=== PATIENT | female | born 1960 | race Caucasian/White ===

== ENCOUNTER → 2017-05-13 21:50 | Outpatient (CLI) | payer SELFPAY | PROVIDERS: Visit Provider Otolaryngology | DX: H92.12 Otorrhea, left ear (principal) | CPT/HCPCS: 87070; 87075; 87077; 87186; 87205 ==

== ENCOUNTER → 2021-03-01 08:01 | Outpatient (CLI) | payer MEDICAID, SELFPAY ==
--- NOTE | 2021-03-01 09:42 | NEURO ---
NCS and/or EMG Patient Report Ordering Doctor: Yany Mckeon NP DATE OF SERVICE: 03/01/21 СЕРГЕЙ Schaffer presents for electrodiagnostic testing of the upper limbs. She reports numbness and tingling in both hands, worse on the left side. Symptoms are worse at night. Electrodiagnostic findings: Median motor nerve demonstrates prolonged distal latency bilaterally with normal amplitude and reduced conduction velocity. Normal ulnar motor response bilaterally. Absent left median sensory latency at the wrist. Prolonged right median sensory latency at the wrist. Prolonged median palmar response bilaterally. Normal ulnar and radial sensory responses. On needle EMG, all muscles tested showed no evidence of denervation with normal motor unit action potentials. Electrodiagnostic impression: This is an abnormal study in the upper limbs. 1. Electrodiagnostic findings demonstrate bilateral median mononeuropathy. This is consistent with a moderate to advanced bilateral carpal tunnel syndrome 2. No electrodiagnostic evidence is noted for cervical radiculopathy.
== END ==
PROVIDERS: Referring Provider Nurse Practitioner Adult Health; Visit Provider Nurse Practitioner Adult Health
DX: M79.601 Pain in right arm (principal); M79.602 Pain in left arm; R20.2 Paresthesia of skin
CPT/HCPCS: 95886; 95913

== ENCOUNTER 2022-02-06 16:14 | Emergency (ER) | payer MEDICAID, SELFPAY ==
[2022-02-06 16:16] VITALS: BP 154/104; PULSE 75; RESP 18; TEMP 36.2; O2SAT 100; BMI 22.1
--- NOTE | 2022-02-06 16:43 | EDS_ITS ---
HPI HPI - GI History of Present Illness Chief Complaint: Other, Pain/Inj Informant: patient Abdominal Pain/Flank Pain Onset: Days (3) Context: Gradual Onset Timing: Intermittent Quality: - (Pressure) Location: Diffuse Worsened by: Nothing Relieved by: Nothing Nausea/Vomiting/Emesis GI Symptom: Negative for Nausea or Vomiting Diarrhea/Melena/Hematochezia GI Symptom: Positive for Hematochezia; Negative for Diarrhea or Melena Associated Symptoms Associated Symptoms: Negative for Dysuria, Frequency or Hematuria Narrative Narrative: Patient presents with abdominal pain and buttock pain that has been getting worse over the past 3 days. Patient states it is intermittent. Patient states that it is diffuse across her abdomen and into her buttocks. Patient describes it as a pressure and sharp at times. Patient states nothing makes it worse. Patient states he gets better after a few minutes. Patient states she did have some bloody mucus with a bowel movement today. Patient denies any diarrhea. Patient denies any nausea or vomiting. Patient denies any urinary complaints. PFSH PFSH Medical History no medical history no medical history Home Medications omeprazole 20 mg capsule,delayed release 20 mg PO DAILY #30 CAPSULES 02/06/22 [Rx Last Taken Unknown] Allergy/AdvReac Type Severity Reaction Status Date / Time No Known Allergies Allergy Verified 02/06/22 16:16 Surgical History History of tonsillectomy Social History Smoking Status: Current every day smoker tobacco type: cigarettes ROS ROS ED Constitutional Constitutional ED: Denies chills or fever(s) Eyes Eyes: Denies blurry vision or change in vision ENT ENT ED: Denies rhinorrhea or sore throat Cardiovascular Cardiovascular: Denies chest pain or palpitations Respiratory/Chest Respiratory/Chest: Denies cough or dyspnea Gastrointestinal Gastrointestinal: Reports abdominal pain; Denies nausea or vomiting Genitourinary Genitourinary ED: Denies dysuria or hematuria Musculoskeletal Musculoskeletal: Denies back pain or neck pain Integumentary Denies abscess or rash Neurologic Neurologic: Denies headache(s) or weakness Allergic/Immunologic Allergic/Immunologic ED: Denies mouth swelling or urticaria EXAM Physical Exam Const Vital Signs: 02/06/22 16:16 02/06/22 18:15 Temperature 97.2 F L Temperature Source Temporal Pulse Rate 75 79 Respiratory Rate 18 15 Blood Pressure 154/104 H 133/89 H Blood Pressure Mean 120 103 Pulse Ox 100 99 Oxygen Delivery Method Room Air Room Air Positive well nourished and well developed General Appearance ED: well developed and NAD HEENT Reports moist mucous membranes Neck supple and no JVD Resp normal respiratory effort and clear to auscultation bilaterally Cardio regular rate, regular rhythm and no murmurs GI normal to inspection, nondistended, normoactive bowel sounds and non-tender Palpation: soft Extremity normal to inspection General Extremety ED: Negative for edema or tenderness General Extremity: Negative for edema Neuro oriented x3, CN's II-XII intact bilaterally and no sensory deficits noted Sensorium / Orientation: alert Motor Exam: strength 5/5 throughout Psych mental status grossly normal Skin no rashes or lesions noted MDM MDM MDM Narrative Medical decision making narrative: Patient was given IV fluids. CBC was within normal limits. Comprehensive metabolic profile was essentially within normal limits. Urinalysis does not show any evidence of urinary tract infection or hematuria. CT scan of the abdomen and pelvis was obtained. There is evidence of gastritis. There is a solitary gallstone but no evidence of cholecystitis. Lactate was normal. Patient is feeling better on reevaluation. Patient was advised of her findings. Patient was given a prescription for Prilosec. Patient was instructed to start with a bland diet and advance as tolerated. Patient was instructed to follow-up with her primary care physician in 5 to 7 days. Patient understood and was agreeable with the plan. All questions were answered. Lab Data Attestation: I reviewed the patient's lab results. Labs: Laboratory Results - last 24 hr 02/06/22 02/06/22 02/06/22 16:57 16:58 16:58 WBC 7.5 RBC 4.09 L Hgb 12.1 Hct 37.5 MCV 91.7 MCH 29.6 MCHC 32.3 RDW Std Deviation 49.5 H RDW Coeff of Santiago 14.7 H Plt Count 211 MPV 11.1 Immature Gran % (Auto) 0.300 Neut % (Auto) 53.3 Lymph % (Auto) 35.5 [place] % (Auto) 8.9 Eos % (Auto) 1.5 Baso % (Auto) 0.5 Absolute Neuts (auto) 4.0 Absolute Lymphs (auto) 2.68 Nucleated RBC % 0 Sodium 138 Potassium 4.0 Chloride 108 H Carbon Dioxide 26.0 Anion Gap 4 L BUN 13 Creatinine 0.63 Estim Creat Clear Calc 71.66 Est GFR (MDRD) Af Amer 124 Est GFR (MDRD) Non-Af 102 BUN/Creatinine Ratio 20.6 H Glucose 104 Lactic Acid Calcium 9.5 Total Bilirubin 0.40 AST 15 ALT 21 Alkaline Phosphatase 103 Total Protein 7.3 Albumin 3.9 Globulin 3.4 Albumin/Globulin Ratio 1.1 Lipase 137 Urine Color Yellow Urine Clarity Clear Urine pH 6.0 Ur Specific [place] 1.015 Urine Protein Negative Urine Glucose (UA) Normal Urine Ketones Negative Urine Occult Blood Negative Urine Nitrite Negative Urine Bilirubin Negative Urine Urobilinogen Normal Ur Leukocyte Esterase 25 H Urine RBC 0 SEEN Urine WBC 0-5 SEEN Ur Squamous Epith Cells 0-5 SEEN Urine Bacteria 1+ Urine Mucus 0 SEEN 02/06/22 16:58 WBC RBC Hgb Hct MCV MCH MCHC RDW Std Deviation RDW Coeff of [place] Plt Count MPV Immature Gran % (Auto) Neut % (Auto) Lymph % (Auto) [place] % (Auto) Eos % (Auto) Baso % (Auto) Absolute Neuts (auto) Absolute Lymphs (auto) Nucleated RBC % Sodium Potassium Chloride Carbon Dioxide Anion Gap BUN Creatinine Estim Creat Clear Calc Est GFR (MDRD) Af Amer Est GFR (MDRD) Non-Af BUN/Creatinine Ratio Glucose Lactic Acid 0.7 Calcium Total Bilirubin AST ALT Alkaline Phosphatase Total Protein Albumin Globulin Albumin/Globulin Ratio Lipase Urine Color Urine Clarity Urine pH Ur Specific [place] Urine Protein Urine Glucose (UA) Urine Ketones Urine Occult Blood Urine Nitrite Urine Bilirubin Urine Urobilinogen Ur Leukocyte Esterase Urine RBC Urine WBC Ur Squamous Epith Cells Urine Bacteria Urine Mucus Radiography Diagnostic Testing: Clinical Impression(s) from Imaging Studies Abdomen/Pelvis CT 02/06/22 16:46 IMPRESSION: (NOT LISTED IN ORDER OF SIGNIFICANCE) Gastritis. There is a solitary gallstone. Other findings as above. Electronically Signed: Lev Millan MD at 19:47 EST Reading Location ID and State: [facility] / [place] , Service support , Discharge Plan Triage Chief Complaint: Other, Pain/Inj Other Complaint: GI Bleed ED Provider: Perry Rojas Dx/Rx/DC Orders Clinical Impression: Gastritis, Abdominal pain Instructions: ED Gastritis (Adult) Prescriptions: New omeprazole [omeprazole] 20 MG capsule 20 mg PO DAILY Qty: 30 0RF [facility] Referrals: Care Physician,No Primary [Non-Staff] - Disposition Disposition: Home, Self Care
--- NOTE | 2022-02-06 16:46 | CT_ITS ---
STUDY: CT Abdomen And Pelvis W/ Contrast Injection 02/06/2022 7:45 PM REASON FOR EXAM: Female, 61 years old. ABDOMINAL PAIN Technologist Notes rectal pain and noticed blood and mucus, constipation TECHNIQUE: Transaxial images were obtained with oral contrast, and with Oral and amp; IV Gastrografin and amp; 100mL Isovue-300 intravenous contrast. Individualized dose optimization techniques were used for this CT. COMPARISON: None. FINDINGS: The visualized lung bases are unremarkable. The visualized portions of the heart are within normal limits. Unremarkable liver. There is a solitary gallstone. Unremarkable spleen. Unremarkable pancreas. Unremarkable bilateral adrenal glands. There are hypodensities in the right kidney. These are consistent for cysts. No follow up required. No acute findings of the left kidney. Focal wall thickening of the antrum of stomach. This can suggest a gastritis. Unremarkable small intestine. Unremarkable colon. There is non-visualization of the appendix. There are calcifications of the abdominal aorta. This is consistent for atherosclerotic disease. There is no abdominal aortic aneurysm. Unremarkable inferior vena cava. Subcentimeter mesenteric lymph nodes. Unremarkable urinary bladder. Unremarkable abdominal wall. Unremarkable osseous structures. CT/Abdomen/Pelvis WITH Contrast IMPRESSION: (NOT LISTED IN ORDER OF SIGNIFICANCE) Gastritis. There is a solitary gallstone. Other findings as above. Electronically Signed: Lev Millan MD at 19:47 EST ,
[2022-02-06] MEDS: 0.9% Normal Saline 1,000 ML 1000 ML IV (16:57)
[2022-02-06 17:02] LABS: Mucous, Urine 0 SEEN /hpf (<or=2+); Red Blood Cells-Urine 0 SEEN /hpf (0-5)
[2022-02-06 17:07] LABS: Absolute Lymphocyte Count 2.68 X10^3/uL (0.83-4.51); Basophil# 0.04 X10^3/uL; Basophil% 0.5 % (0-1); Eosinophil# 0.11 X10^3/uL; Eosinophils% 1.5 % (0-5); Hematocrit 37.5 % (37-47); Hemoglobin 12.1 g/dL (12.0-15.0); Lymphocyte # 2.68 X10^3/ul (0.83-4.51); Lymphocyte % 35.5 % (19-41); Mean Corp Hgb Conc 32.3 g/dL (32-36); Mean Corpuscular Hgb 29.6 pg (27.0-32.0); Mean Corpuscular Volume 91.7 fL (81-99); Mean Platelet Vol. 11.1 fl (6.2-12.0); Monocyte# 0.67 X10^3/uL; Monocyte% 8.9 % (0-10); NRBC Flagged by Analyzer 0 % (0-5); Neutrophil # 4.02 X10^3/uL (2.7-7.7); Neutrophil % 53.3 % (47-70); Platelet Count 211 K/mm3 (150-450); RBC Distribution Width CV 14.7 % (11.6-14.6); RBC Distribution Width SD 49.5 fl (35.1-43.9); Red Blood Count 4.09 M/mm3 (4.2-5.4); White Blood Count 7.5 K/mm3 (4.4-11.0)
[2022-02-06 17:16] LABS: Color, Urine Yellow (Yellow); Glucose, Dipstick Normal (Normal); Ketone-Dipstick Negative (Negative); Leukocyte Esterase-Dipstick 25 /ul (Negative); Nitrite-Dipstick Negative (Negative); Occult Blood-Urine Negative /ul (Negative); Protein-Dipstick Negative (Negative); Specific Gravity, Urine 1.015 (1.002-1.030); Urine Bilirubin Dipstick Negative (Negative); Urine Clarity Clear (Clear); Urine Urobilinogen Normal (Normal)
[2022-02-06 17:26] LABS: ALB/GLOB Ratio 1.1 RATIO (0.9-2.4); AST(SGOT) 15 U/L (15-37); Alanine Aminotransfer ALT/SGPT 21 U/L (13-56); Albumin, Serum 3.9 g/dL (3.2-5.0); Alkaline Phosphatase 103 U/L (45-117); Anion Gap 4 (5-15); BUN 13 mg/dL (7-18); BUN/Creat Ratio 20.6 RATIO (10-20); Calcium,Total 9.5 mg/dL (8.5-10.1); Chloride 108 mmol/L (98-107); Creatinine, Serum 0.63 mg/dL (0.55-1.02); EST Glomerular Filtration Rate 102 mL/min (>60); Est Glom Filt Rate - Afr Amer 124 mL/min (>60); Estimated Creatinine Clearance 71.66 ml/min; Globulin 3.4 g/dL (2.2-4.2); Glucose 104 mg/dL (74-106); Lipase 137 U/L (73-393); Protein, Total 7.3 g/dL (6.4-8.2); Sodium Level 138 mmol/L (136-145)
[2022-02-06 17:29] LABS: Bacteria 1+ /hpf (None Seen); Squamous Epithelial Cells - UA 0-5 SEEN /hpf (5-10); White Blood Cells 0-5 SEEN /hpf (0-5)
[2022-02-06 17:32] LABS: Lactic Acid 0.7 mmol/L (0.4-1.9)
[2022-02-06 18:15] VITALS: BP 133/89; PULSE 79; RESP 15; O2SAT 99
== END 2022-02-06 20:46 | disposition home or self-care (01) ==
PROVIDERS: Emergency Provider Emergency Medicine; Visit Provider Emergency Medicine
DX: K29.70 Gastritis, unspecified, without bleeding (principal); K92.2 Gastrointestinal hemorrhage, unspecified; F17.210 Nicotine dependence, cigarettes, uncomplicated; K80.20 Calculus of gallbladder without cholecystitis without obstruction
CPT/HCPCS: 74177; 80053; 81001; 83605; 83690; 85025; 96360; 99283; J7030; Q9967; A4216

== ENCOUNTER 2022-03-19 07:33 | Day surgery (SDC) | payer MEDICAID, SELFPAY ==
[2022-03-19] VITALS (9 sets, daily range): BP systolic 108–164; BP diastolic 81–103; PULSE 68–82; RESP 16; TEMP 36.3–37.1; O2SAT 96–98; BMI 21.2
--- NOTE | 2022-03-19 | MASS_PTH ---
PATIENT: Fredrick HAYWARD LOC: EN U#:[id number] AGE/SX: 61/F ROOM: RE03/19/[address]: Dr. Ama Reeves MD : 1960 BED: DIS: 03/19/2022 SPEC #: [id number] RECD: 03/19/22 09:32 STATUS: ANTHONY LASHON #: [id number] NORMA: 03/19/22 00:[address]: Ama Reeves DEPT: SURGICAL PATHOLOGY RECD BY: Leticia Ibarra ENTERED: 03/19/22 10:34 SP TYPE: Mass OTHR DR: Miesha [facility] Tissues: A - Rectum, NOS B - Rectum, NOS Procedures: Frozen Section (charge) Surgery Specimen Level IV HEADER OPERATION: Colonoscopy [place] biopsy PRE-OP DIAGNOSIS: Blood in stool, constipation, abdominal pain TISSUE SUBMITTED: A ? Rectal mass biopsy at 10 cm, FS, B ? Rectal mass FROZEN SECTION DIAGNOSIS A. Rectal mass at 10 cm, biopsy: Fragments of colonic mucosa, negative for carcinoma. SJ:rg 03/19/2022 MICROSCOPIC DIAGNOSIS A. Rectal mass at 10 cm, biopsy: Fragments of tubular adenoma. See comment. B. 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 SJ:bev 03/20/2022 COMMENT A. Definite invasive carcinoma is not seen. This case is discussed with Dr. Reeves on 03/20/22 Case has been reviewed in consultation with Dr. Sanchez who concurs with the above diagnosis. IDC:AM MICROSCOPIC DESCRIPTION Slides are reviewed. GROSS DESCRIPTION A - Received fresh for frozen section diagnosis labeled with the patient's name is a specimen designated rectal mass biopsy at 10 cm. The specimen consists of two irregular fragments of bergman soft tissue that in aggregate measure 0.5 x 0.3 x 0.1 cm. The entire specimen is submitted for frozen section diagnosis in one cassette. / SJ: 03/19/2022 B - Received in fixative is one container labeled with the patient's name and designated rectal mass biopsy. The specimen consists of multiple irregular fragments of light bergman soft tissue that in aggregate measure 1 x 0.4 x 0.1 cm. The specimen is totally submitted in one cassette. / : 03/19/2022 TC:0 [facility]:[id number] x2, [id number] ADDENDUM ADDENDUM ADDENDUM ADDENDUM ADDENDUM ADDENDUM ADDENDUM ADDENDUM ADDENDUM ADDENDUM ADDENDUM ADDENDUM 05/08/2022 14:40 ADDENDUM 05/08/2022 14:40 ADDENDUM 05/08/2022 14:40 ADDENDUM 05/08/2022 14:40 ADDENDUM 05/08/2022 14:40 This addendum is added to incorporate an outside pathology consultation report. The case was examined at [facility] (#[id number]) and the following diagnosis was rendered. A. Rectal mass at 10 cm, biopsy: Tubular adenoma with high-grade dysplasia. B. Rectal mass, biopsy: Tubular adenoma with at least high-grade dysplasia. Please see complete above mentioned consultation report in EMR
--- NOTE | 2022-03-19 08:01 | PCM.HP.BLA ---
History and Physical Date of Admission: 03/19/22 Date of Service:? 03/01/22 MR#: [id number] Acct: [id number] Name:Fredrick SILVER Rep #: [id number] : 1960 ? ? Provider: Dr. Ama Reeves MD Age/Sex:? 61/F ? ? Location: [facility] Status: Signed Intake Vital Signs ? 02/07/2216:16 03/01/2209:14 Height 5 ft 1 in 5 ft 1 in Weight: 117 lb 120 lb 2 oz BMI 22.1 22.6 BP 154/104 H 136/90 H Blood Pressure Location ? Rt brachial Position ? Sitting Respiration 18 17 Pulse 75 74 Pulse Source ? Monitor Temp 97.2 F L 97.2 F L Temp Source Temporal Temporal Pulse Oximetry (%) 100 97 Oxygen Delivery Method ? room air Intake Visit Reasons:?ABDOMINAL PAIN/CONSTIPATION Chief Complaint: abdominal pain/constipation Is patient in pain?: Yes Allergies No Known Allergies Allergy (Verified 03/01/22 09:15) Medications omeprazole 20 mg capsule,delayed release 20 mg PO DAILY #30 CAPSULES 02/06/22 [Rx] amoxicillin 875 mg-potassium clavulanate 125 mg tablet 1 tab PO BID 03/01/22 [History Confirmed 03/01/22] PFSH Surgical History? History of tonsillectomy Social History?(Updated 03/01/22 @ 09:13 by Gladys Hernandez) Smoking Status:? Current every day smoker tobacco type: cigarettes alcohol intake:? current alcohol intake frequency: a few times a month substance use type:? does not use HPI HPI HPI: 61-year-old female presents due to bright blood per rectum.? Patient states she has had this ongoing for about the last 4 weeks.? Patient states that if she is constipated she will notice a little bit of bright red blood in the toilet.? Patient states she has had issues with constipation during this time and only has little bit of bowel movements daily and states it is painful but not pain at the rectum just painful in her abdomen when she is trying to go.? Patient does complain of some lower abdominal crampiness.? Patient states that she on Saturday she did take MiraLAX once daily for 3 days and does not really have any results with that.? Patient has not done any other laxatives.? Patient's never had a colonoscopy denies any family history of colon cancer.? Patient states he does have a good appetite and still eating well.? Patient states she drinks plenty of water, unsure how much fiber she gets in her diet. ROS General General: No weight change, appetite, fatigue, colon cancer, breast cancer or weakness HEENT HEENT: No difficulty swallowing, eye injury, eye surgery, swollen glands or hoarseness Endo Endocrine: No thyroid disease, diabetes mellitus, thyroid cancer, Hair loss, heat intolerance or cold intolerance Skin Skin: No rash or changing moles Breast Breast: No left breast lump, right breast lump, nipple discharge, breast pain, abnormal mammogram, abnormal US or breast enlargement Musc Musculoskeletal: Yes back problems and arthritis; No rheumatoid arthritis, gout or joint pain Cardio Cardiovascular: No murmur, pacemaker, heart disease, atrial fibrillation, high blood pressure, heart attack, heart stent, palpitations, shortness of breat with exertion or chest pain Psych Psychiatric: No depression, anxiety or hearing voices Resp Respiratory: No shortness of breath, No sleep apnea, No cough, No COPD, No asthma, No emphysema and No wheezing Gastro Gastrointestinal: Yes abdominal pain, No nausea or vomiting, No diarrhea, Yes constipation, Yes blood in stool, No acid reflux, Yes hemorrhoids, No ulcers, No gallbladder problem and No black,tarry stools Tee Hematologic: No blood thinners, No blood disorders, No bleeding, No anemia and No blood clots Neuro Neurologic: No system reviewed and no additional complaints, except as documented, No as per HPI, No abnormal gait, No abnormal hearing, No abnormal movements, No abnormal speech, No behavioral changes, No burning sensations, No confusion, No convulsions, No disequilibrium, No dizziness, No localized weakness, No frequent falls, No headache(s), No lack of coordination, No loss of vision, No memory loss, Yes numbness, No other visual disturbances, No radicular pain, No restless legs, No sensory deficit, No syncope, Yes tingling, No tremor(s), No weakness and No other Exam Const General: cooperative, healthy appearing and no acute distress [facility] Head: normal to inspection Resp Effort & Inspection: normal respiratory effort Cardio Rate: regular rate GI Inspection: distended (Slightly distended in right lower/mid abdomen) Palpation: soft, no guarding, no hernias and nontender Skin General: no rashes or lesions noted Neuro General: patient oriented x3 Extrem General: no clubbing, cyanosis or edema Psych Affect: normal affect Assessment and Plan Assessment and Plan (1) Blood in stool: ?Status:?Acute (2) Constipation: ?Status:?Acute (3) Abdominal pain: ?Status:?Acute Plan Discussed with patient that if she is not going very much every day and has not had what she would consider normal bowel movement and weeks at a recommend her first start with several suppositories to try to get going from below first.? And I would recommend her taking MiraLAX or Dulcolax after that to help clean everything out.? Discussed with patient that once she is going more would have her call the office back to schedule colonoscopy as I do not want to schedule as I am not sure what prep will work for her until she really gets started having bowel movements. I have discussed the above with the patient. I have offered the patient colonoscopy for evaluation. I have explained the risks/benefits of the procedure and described the procedure.? I have discussed the risks with the patient, including but not limited to:? infection, bleeding, perforation of the GI tract requiring emergency surgery, inability to complete the procedure, injury to any internal organs, complications of anesthesia, etc. - the patient understands and agrees to proceed. I have answered all the patient's questions to the patient's satisfaction and the patient has no further questions. The patient has been given instructions for the colon cleansing preparation.? 1 or 2 days of clears depending on how often patient is having bowel movements (and Dulcolax x 4 on the first day if 2-day prep), MiraLAX Dulcolax split prep. Ama Reeves M.D. Pager: [phone] [facility] [address] [place] [address], [address] [place] [address] Office: [phone] Coding Level of Care Code Off vis,new,level 3 Diagnoses Blood in stool? K92.1 Constipation? K59.00 Abdominal pain? R10.9 03/02/22 0905 <Electronically signed by Ama Reeves MD> Date Ama Reeves MD
[2022-03-19] MEDS: Lactated Ringers 1,000 ML 15 ML IV ×2 (08:36→10:38)
--- NOTE | 2022-03-19 09:38 | OP.COLON_ITS ---
Patient Name: Fredrick Schaffer Procedure Date: 03/19/2022 8:50 AM Date of : 1960 Age: 61 Procedure: Colonoscopy Indications: Rectal bleeding, Constipation Providers: Ama Reeves MD Referring MD: Miesha Valdes [facility] Medicines: Monitored Anesthesia Care Patient Profile: This is a 61 year old female. Last Colonoscopy: none. The patient's first colonoscopy is today. Complications: No immediate complications. Procedure: Pre-Anesthesia Assessment: - Prior to the procedure, a History and Physical was performed, and patient medications and allergies were reviewed. The patient's tolerance of previous anesthesia was also reviewed. The risks and benefits of the procedure and the sedation options and risks were discussed with the patient. All questions were answered, and informed consent was obtained. Prior Anticoagulants: The patient has taken no previous anticoagulant or antiplatelet agents. ASA Grade Assessment: Per anesthesia. After reviewing the risks and benefits, the patient was deemed in satisfactory condition to undergo the procedure. After I obtained informed consent, the scope was passed under direct vision. Throughout the procedure, the patient's blood pressure, pulse, and oxygen saturations were monitored continuously. The pediatric colonoscope was introduced through the anus and advanced to the cecum, identified by the appendiceal orifice, ileocecal valve and palpation. The colonoscopy was performed without difficulty. The patient tolerated the procedure well. The quality of the bowel preparation was good. Scope In: 8:56:51 AM Scope Withdrawal Time 0 hours 20 minutes 11 seconds Scope Out: 9:25:04 AM Total Procedure Duration Time 0 hours 28 minutes 13 seconds Findings: Hemorrhoids were found on perianal exam. Non-bleeding internal hemorrhoids were found. The hemorrhoids were Grade I (internal hemorrhoids that do not prolapse). A frond-like/villous non-obstructing mass was found in the rectum. The mass was partially circumferential (involving one-third of the lumen circumference). The mass measured three cm in length. No bleeding was present. Biopsies were taken with a cold forceps for histology. Area was tattooed with an injection of Leyla ink at lesion and just distal to mass. Mass at about 10-12cm from anus. The exam was otherwise without abnormality. Impression: - Hemorrhoids found on perianal exam. - Non-bleeding internal hemorrhoids. 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 Biopsied. Tattooed. - The examination was otherwise normal. Recommendation: - Discharge patient to home. - Resume previous diet. - Continue present medications. - Perform a CT scan (computed tomography) of chest with contrast, abdomen with contrast and pelvis with contrast today. - Check hemogram with white blood cell count and platelets, electrolyte panel and CEA today. - Refer to a colo-rectal surgeon at appointment to be scheduled. - Repeat colonoscopy is recommended. The colonoscopy date will be determined after pathology results from today's exam become available for review. Procedure Code(s): --- Professional --- 44784, Colonoscopy, flexible; with directed submucosal injection(s), any substance 74736, Colonoscopy, flexible; with biopsy, single or multiple Diagnosis Code(s): --- Professional --- K64.0, First degree hemorrhoids D49.0, Neoplasm of unspecified behavior of digestive system K62.5, Hemorrhage of anus and rectum K59.00, Constipation, unspecified CPT copyright 2017 [employer]. All rights reserved. The codes documented in this report are preliminary and upon buffing wheel inspector review may be revised to meet current compliance requirements. MD Ama Keating MD 03/19/2022 9:37:36 AM This report has been signed electronically. Number of Addenda: 0 Note Initiated On: 03/19/2022 8:50 AM
--- NOTE | 2022-03-19 09:38 | OP.CCLET_ITS ---
[facility]19[facility]20[facility] for Fredrick Tomas [facility] This procedure was performed on Saturday, March 19, 2022. My impressions and recommendations are as follows: Impressions : - Hemorrhoids found on perianal exam. - Non-bleeding internal hemorrhoids. 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 Biopsied. Tattooed. - The examination was otherwise normal. Recommendations : - Discharge patient to home. - Resume previous diet. - Continue present medications. - Perform a CT scan (computed tomography) of chest with contrast, abdomen with contrast and pelvis with contrast today. - Check hemogram with white blood cell count and platelets, electrolyte panel and CEA today. - Refer to a colo-rectal surgeon at appointment to be scheduled. - Repeat colonoscopy is recommended. The colonoscopy date will be determined after pathology results from today's exam become available for review. My findings are described in the full procedure note, which is enclosed. If I can be of further assistance, please feel free to contact me at Doctor phone number(s): , Work: . Sincerely, MD Ama Keating MD 03/19/2022 9:37:36 AM This report has been signed electronically.
--- NOTE | 2022-03-19 09:45 | CT_ITS ---
STUDY: CT CHEST, ABDOMEN T PELVIS WITH CONTRAST REASON FOR EXAM: Female, 61 years old. RECTAL MASS -- WITH AND WITHOUT CONTRAST RADIATION DOSAGE (If Supplied By Facility): CTDIvol = ( 8.73 ) mGy, DLP = ( 486.56 ) mGycm TECHNIQUE: Transaxial imaging was performed following intravenous administration of Oral and amp; IV Gastrografin and amp; 100mL Isovue-370. Multiplanar coronal and sagittal images were reformatted. Individualized dose optimization techniques were used for this CT. COMPARISON: Comparison is made with prior CT scan and pelvis dated 02/06/2022. FINDINGS: CHEST Mild degree of emphysematous changes in the globes. Minimal scarring is seen in the superior segment of the right lobe. There is no demonstrated pleural abnormality. There are mild calcifications of the coronary arteries. Normal mediastinum. Normal hilar regions. Normal unenhanced pulmonary arteries. Normal aorta arch and descending thoracic aorta. There are mild multi-level degenerative changes of the thoracic spine. Multiple small gallstones. ABDOMEN Normal liver. There are multiple small gallstones. Normal spleen. Normal pancreas. Normal bilateral adrenal glands. There is a 6.2 mm cyst in the lower pole of the right kidney. Normal left kidney. Normal visualized stomach. Normal small intestine. Irregular soft tissue mass in the rectosigmoid junction more prominent on the anterior and right lateral aspect. The appendix is visualized and appears normal. There is scattered atherosclerotic calcification of the abdominal aorta, without a demonstrated aneurysm. Normal inferior vena cava. Normal retroperitoneum. Normal abdominal wall. Normal osseous structures. PELVIS Normal urinary bladder. There is no pelvic fluid. There is no pelvic lymphadenopathy or mass lesion. There is diffuse atherosclerotic calcification of the pelvic arteries. CT/CT Chest, Abd, Pel w/Contrast IMPRESSION: Large heterogeneous irregular mass involving the right and anterior aspect of the rectosigmoid junction. Multiple small gallstones. Electronically Signed: Wero Arboleda MD at 13:18 EST ,
[2022-03-19 10:29] LABS: Absolute Lymphocyte Count 1.62 X10^3/uL (0.83-4.51); Absolute Neutrophil Count 2.8 X10^3/uL (2.0-7.7); Basophil# 0.02 X10^3/uL; Basophil% 0.4 % (0-1); Eosinophil# 0.05 X10^3/uL; Hematocrit 37.2 % (37-47); Hemoglobin 11.8 g/dL (12.0-15.0); Lymphocyte # 1.62 X10^3/ul (0.83-4.51); Lymphocyte % 32.9 % (19-41); Mean Corp Hgb Conc 31.7 g/dL (32-36); Mean Corpuscular Hgb 29.2 pg (27.0-32.0); Mean Corpuscular Volume 92.1 fL (81-99); Mean Platelet Vol. 11.1 fl (6.2-12.0); Monocyte# 0.48 X10^3/uL; Monocyte% 9.7 % (0-10); NRBC Flagged by Analyzer 0 % (0-5); Neutrophil # 2.75 X10^3/uL (2.7-7.7); Neutrophil % 55.8 % (47-70); Platelet Count 171 K/mm3 (150-450); RBC Distribution Width CV 13.5 % (11.6-14.6); RBC Distribution Width SD 46.2 fl (35.1-43.9); Red Blood Count 4.04 M/mm3 (4.2-5.4); White Blood Count 4.9 K/mm3 (4.4-11.0)
[2022-03-19 10:44] LABS: ALB/GLOB Ratio 0.9 RATIO (0.9-2.4); AST(SGOT) 16 U/L (15-37); Alanine Aminotransfer ALT/SGPT 18 U/L (13-56); Albumin, Serum 3.3 g/dL (3.2-5.0); Alkaline Phosphatase 97 U/L (45-117); Anion Gap 8 (5-15); BUN 9 mg/dL (7-18); Calcium,Total 8.7 mg/dL (8.5-10.1); Chloride 108 mmol/L (98-107); Creatinine, Serum 0.53 mg/dL (0.55-1.02); EST Glomerular Filtration Rate 125 mL/min (>60); Est Glom Filt Rate - Afr Amer 151 mL/min (>60); Estimated Creatinine Clearance 85.18 ml/min; Globulin 3.5 g/dL (2.2-4.2); Glucose 94 mg/dL (74-106); Potassium 3.8 mmol/L (3.5-5.1); Protein, Total 6.8 g/dL (6.4-8.2); Sodium Level 137 mmol/L (136-145)
== END 2022-03-19 14:03 | disposition home or self-care (01) ==
LOC: EN 07:33 → AC 07:34
PROVIDERS: Visit Provider Surgery
PROC: 0DJD8ZZ Inspection of Lower Intestinal Tract, Via Natural or Artificial Opening Endoscopic (ICD-10-PCS; CPT 45378; principal; 2022-03-19 08:55)
DX: D01.2 Carcinoma in situ of rectum (principal); K64.0 First degree hemorrhoids; F17.210 Nicotine dependence, cigarettes, uncomplicated; K59.00 Constipation, unspecified
CPT/HCPCS: 45380; 45381; 71260; 74177; 80053; 82378; 85025; 88305; 88331; J7120; Q9967; A4648; J2405

== ENCOUNTER 2023-12-12 15:42 | Emergency (ER) | payer BC, MEDICAID, SELFPAY ==
[2023-12-12 15:43] VITALS: BP 168/90; PULSE 75; RESP 18; TEMP 36.4; O2SAT 97; BMI 22.4
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
--- NOTE | 2023-12-12 16:10 | RAD_ITS ---
EXAM: XR RIGHT FINGERS, 2 OR MORE VIEWS CLINICAL INDICATION: Injury/Pain -- Thumb TECHNIQUE: Frontal, lateral and oblique views of the fingers of the right hand. COMPARISON: No relevant prior studies available. FINDINGS: BONES/JOINTS: Unremarkable. No acute fracture. No subluxation. Normal alignment. Preservation of the joint space. No sclerotic or destructive changes observed. SOFT TISSUES: Unremarkable. No soft tissue swelling or gas. No radiopaque foreign body. RAD/Finger(s) Min 2 Views IMPRESSION: Negative x-rays of the visualized right fingers. Electronically Signed: Landen Syed MD at 16:26 EDT ,
[2023-12-12] MEDS: Diphth,Pertuss(Acell),Tet Vac 0.5 ML Vial IM (16:22)
== END 2023-12-12 16:36 | disposition home or self-care (01) ==
LOC: ED 16:33
PROVIDERS: Emergency Provider Emergency Medicine; Referring Provider Emergency Medicine; Visit Provider Emergency Medicine
DX: S16.1XXA Strain of muscle, fascia and tendon at neck level, initial encounter (principal); V49.40XA Driver injured in collision with unspecified motor vehicles in traffic accident, initial encounter; Y92.410 Unspecified street and highway as the place of occurrence of the external cause; S60.011A Contusion of right thumb without damage to nail, initial encounter; S60.511A Abrasion of right hand, initial encounter; F17.200 Nicotine dependence, unspecified, uncomplicated; S69.91XA Unspecified injury of right wrist, hand and finger(s), initial encounter; Z23 Encounter for immunization
CPT/HCPCS: 73140; 90471; 90715; 99282